=== PATIENT | female | born 1970 | race Caucasian/White ===

== ENCOUNTER 2019-06-15 09:58 | Day surgery (SDC) | payer OTHER ==
[~2019-06-15] VITALS: Ht 170.2 cm; Wt 167.8 kg
[~2019-06-15 09:58] MED LIST: AIMOVIG AU140 MG/1 M SUBQ; ALBUTEROL2.5 MG/3 M INH; BUPROPION XL150 MG PO; CLONAZEPAM 1 MG1 M1 PO; COZAAR 25 MG TA25 M1 PO; CYCLOBENZAPRINE10 MG PO; DULOXETINE HCL60 MG PO; FLONASE 0.05%50 MCG NASAL; GRALISE600 MG PO; HYDROXYZINE HCL10 M2 PO; KETOROLAC IM; LEFLUNOMIDE20 MG PO; MELOXICAM15 MG PO; NEURONTIN300 MG PO; NORTRIPTYLINE H50 M3 PO; PROAIR HFA8.5 GM INH; RINVOQ ER15 MG PO; TRELEGY ELLIPT1 EACH NASAL; VERAPAMIL E.R240 M1 PO; VITAMIN B2 PO; VITAMIN D325 MC3 PO; VITAMIN E400 UNI6 PO
[2019-06-15] MEDS ORDERED: ASPIRIN EC325 M1 PO (12:33)
[2019-06-15] MEDS ORDERED: NORCO 7.5-3251 EACH PO (12:35)
[2019-06-15 14:24] VITALS: BP 144/77
--- NOTE | 2019-06-29 15:42 | O ---
[facility] [place] [address] OPERATIVE REPORT Name: EILEEN HERMAN Room #: DEP [facility]#: [id number] Admission: 06/15/19 Attend Phys: Tr Damian MD Discharge: 06/15/19 Date of : 68 Report #: [id number] THIS REPORT FOR: cc: Margarita Gleason MD,Margarita Damian,Tr Hernandez MD ~ CC: Tr Gleason DATE OF SERVICE: 06/15/2019 PREOPERATIVE DIAGNOSIS: Right foot fifth metatarsal stress fracture. POSTOPERATIVE DIAGNOSIS: Right foot fifth metatarsal stress fracture. PROCEDURE: Right foot fifth metatarsal percutaneous screw fixation. SURGEON: Dr. Tr Damian. EXECUTIVE DIRECTOR OF MARKETING: Corazon Russell. ANESTHESIA: General. ESTIMATED BLOOD LOSS: Minimal. DRAINS: No drains. TOURNIQUET TIME: 15 minutes. DESCRIPTION OF PROCEDURE: The patient brought to the operating room where she was placed under general anesthesia. Once under adequate general anesthesia utilizing fluoroscopy for guidance, a guidewire for the 4.5 mm solid screw from [employer] was then placed down the shaft of the fifth metatarsal through the base of the fifth metatarsal extending distally. This was measured at 50 mm. Therefore, this was then drilled for and a 50 mm screw from the [employer] fifth metatarsal plate was then placed. Excellent fixation was achieved. The wound was then irrigated copiously. Fluoroscopy was used to verify satisfactory reduction and fixation. The wound was irrigated copiously and closed with roxanne for the skin. The wound was dressed with Xeroform, 4 x 4s, and sterile soft compressive dressing was placed. Tourniquet was let down at approximately 15 minutes. Toes were pink and warm with good capillary refill. There were no [facility] [address] [place] [address] OPERATIVE REPORT Name: EILEEN HERMAN Room #: DEP [facility]#: [id number] Admission: 06/15/19 Attend Phys: Tr Damian MD Discharge: 06/15/19 Date of : 68 Report #: [id number] complications from the procedure. The patient tolerated the procedure well and went to the recovery room without incident. <ELECTRONICALLY SIGNED> By: Tr Damian MD 06/29/19 1542 1244 1253 Tr Damian MD /nt
== END 2019-06-15 14:11 | disposition home or self-care (01) ==
LOC: TBA 09:58 → OR 09:58 → TBA 10:35 → OR 10:40
DX: M84.374A Stress fracture, right foot, initial encounter for fracture (principal); F32.9 Major depressive disorder, single episode, unspecified; F41.9 Anxiety disorder, unspecified; J45.909 Unspecified asthma, uncomplicated; F17.210 Nicotine dependence, cigarettes, uncomplicated; Z98.890 Other specified postprocedural states; Z79.899 Other long term (current) drug therapy; Z88.0 Allergy status to penicillin; Z88.2 Allergy status to sulfonamides; Z88.8 Allergy status to other drugs, medicaments and biological substances
CPT/HCPCS: 50010; 50101; 50386; 51412; 57091; 57181; 57457; 62110; 62900; 70005

== ENCOUNTER → 2019-09-13 | Day surgery (SDC) | payer OTHER ==
[~2019-09-13] VITALS: Ht 170.2 cm; Wt 163.3 kg
[~2019-09-13] MED LIST changes: +ASPIRIN EC325 M1 PO; +HYDROCODON-ACE1 EAC8 PO; +IMMUNE GLOBULIN SUBQ; +MAG-OXIDE200 MG PO; +NORCO 7.5-3251 EACH PO; +NOXIFOL-D32500 UNIT PO; +PLAQUENIL200 MG PO; +TRELEGY ELLIPT1 EACH INH; -TRELEGY ELLIPT1 EACH NASAL; +VITAMIN B-225 MG PO; +VITAMIN C1000 MG PO; +VITAMIN K240 MCG PO; +ZOFRAN4 MG PO; +ZOLPIDEM TARTRA10 MG PO
--- NOTE | ~2019-09-13 | O ---
[facility] [place] [address] OPERATIVE REPORT Name: EILEEN HERMAN Room #: REG [facility]#: [id number] Admission: 09/13/19 Attend Phys: Alma Cordoba, Discharge: Date of : 68 Report #: [id number] THIS REPORT FOR: cc: Margarita Gleason MD,Margarita Cordoba,Alma Kolb MD ~ CC: Margarita Cordoba DATE OF SERVICE: 09/13/2019 PREOPERATIVE DIAGNOSIS: Right carpal tunnel syndrome. POSTOPERATIVE DIAGNOSIS: Right carpal tunnel syndrome. PROCEDURE PERFORMED: Right endoscopic carpal tunnel release. SURGEON: Alma Cordoba MD ANESTHESIA: General mask anesthesia. ESTIMATED BLOOD LOSS: 1 mL. TOURNIQUET TIME: 12 minutes. COMPLICATIONS: None. CONDITION: Stable. DISPOSITION: Recovery room. INDICATIONS: The patient is a 48-year-old female with the above-mentioned diagnosis. She elects for operative treatment. The risks, benefits, alternatives and complications were discussed including but not limited to infection, damage to vessels or nerves, incomplete relief or worsening of any symptoms. Informed consent was obtained. The correct extremity was identified and labeled by myself after verbal confirmation of the patient as well as visual confirmation and signed informed consent. DESCRIPTION OF PROCEDURE: The patient was brought back to the operating room and placed on the operating table in the supine position. She received preoperative antibiotics. Tourniquet was placed over padding on the patient's right upper extremity. The right upper extremity was sterilely prepped and draped in the usual fashion. Final timeout was taken to verify correct patient, operative procedure, operative site, all concurred. The arm was elevated, exsanguinated and tourniquet inflated. The entire procedure was done with the [address] [address] OPERATIVE REPORT Name: EILEEN HERMAN Room #: REG [facility]#: [id number] Admission: 09/13/19 Attend Phys: Alma Cordoba, Discharge: Date of : 68 Report #: [id number] aid of a 3.5 loupe magnification. Next, transverse incision was made at few millimeters proximal to the distal wrist crease in line with ulnar border of the palmaris longus tendon. Dissection was carried down through subcutaneous tissue with tenotomy scissors. The antebrachial fascia was identified and incised. It was then incised for a few millimeters proximal. Next, an oblique incision was made ____ hook of hamate in line with the ring finger. Fat was elevated off the fascia. The fascia was carefully incised. Next, a Cornucopia elevator was placed through the carpal tunnel from proximal to distal to elevate any synovial tissue off the undersurface of the transverse carpal ligament. Next, ____ was placed through the carpal tunnel to remove any synovial tissue off the undersurface of the transverse carpal ligament. Next, a blunt trocar and cannula was inserted with the wrist in maximal extension and digital pressure distally, so blunt trocar was removed. The camera was inserted and the nice transverse fibers of the undersurface of the transverse carpal ligament were easily identified. The blade was brought in distally and the transverse carpal ligament transected distally. Next, the camera was inserted distally and the transverse carpal ligament was transected proximally. Next, the camera and cannula were withdrawn and visualized the cut end of the transverse carpal ligament. Each wound was explored. There was approximately 1 cm of the transverse carpal ligament that remained distally. This was incised under direct visualization. The release was all away from the antebrachial fascia in the forearm all the way to the fat in the palm. The nerve looked to be in excellent condition. A Cornucopia elevator was placed through the carpal tunnel and no remnants of the transverse carpal ligament remained. The wounds were thoroughly irrigated. Skin was closed with 4-0 nylon suture. Wounds were infiltrated with approximately 5 mL of 0.25% Marcaine. She was placed in a bulky dressing. All fingers were pink with brisk capillary refill at the conclusion of case after deflation of tourniquet. All sponge and needle counts were correct. The patient was transferred to postoperative recovery room in stable condition. By: [id number] 1709 Alma Cordoba MD /nt
[2019-09-13 12:07] VITALS: BP 125/89
[2019-09-13 13:45] VITALS: BP 125/89
== END | disposition home or self-care (01) ==
LOC: OR 11:04
DX: G56.01 Carpal tunnel syndrome, right upper limb (principal); I10 Essential (primary) hypertension; E78.5 Hyperlipidemia, unspecified; J45.909 Unspecified asthma, uncomplicated; F32.9 Major depressive disorder, single episode, unspecified; F41.9 Anxiety disorder, unspecified; M06.9 Rheumatoid arthritis, unspecified; G43.909 Migraine, unspecified, not intractable, without status migrainosus; F17.210 Nicotine dependence, cigarettes, uncomplicated; Z98.890 Other specified postprocedural states; Z79.899 Other long term (current) drug therapy; Z98.84 Bariatric surgery status; Z88.0 Allergy status to penicillin; Z88.2 Allergy status to sulfonamides
CPT/HCPCS: 50010; 50101; 50386; 56526; 56969; 57006; 57091; 57178; 62110; 62900; 70005

== ENCOUNTER → 2019-10-08 | Outpatient (CLI) | payer OTHER ==
[~2019-10-08] MED LIST changes: +REPATHA SU140 MG/1 M SUBQ; +TYMLOS1.56 ML SUBQ
== END ==
LOC: LAB 12:43
PROVIDERS: ATTEND Orthopaedic Surgery Hand Surgery
DX: Z01.818 Encounter for other preprocedural examination (principal); Z11.59 Encounter for screening for other viral diseases

== ENCOUNTER 2019-10-18 11:35 | Day surgery (SDC) | payer OTHER ==
[~2019-10-18] VITALS: Ht 170.2 cm; Wt 158.3 kg
--- NOTE | ~2019-10-18 | O ---
[facility] [place] [address] OPERATIVE REPORT Name: EILEEN HERMAN Room #: DEP [facility]#: [id number] Admission: 10/18/19 Attend Phys: Alma Cordoba, Discharge: 10/18/19 Date of : 68 Report #: [id number] THIS REPORT FOR: cc: Margarita Gleason MD,Margarita Cordoba,Alma Kolb MD ~ CC: Margarita Cordoba DATE OF SERVICE: 10/18/2019 PREOPERATIVE DIAGNOSIS: Left carpal tunnel syndrome. POSTOPERATIVE DIAGNOSIS: Left carpal tunnel syndrome. PROCEDURE PERFORMED: Left endoscopic carpal tunnel release. SURGEON: Alma Cordoba MD ANESTHESIA: General mask anesthesia. ESTIMATED BLOOD LOSS: Minimal. TOURNIQUET TIME: 12 minutes. COMPLICATIONS: None. CONDITION: Stable. DISPOSITION: To the recovery room. INDICATIONS: The patient is a 49-year-old female with the above-mentioned diagnosis. She elects for operative treatment. The risks, benefits, alternatives and complications were discussed including but not limited to infection, damage to vessels or nerves, incomplete relief of her symptoms or worsening of any symptoms. Informed consent was obtained. The correct extremity was identified and labeled by myself after verbal confirmation of the patient as well as visual confirmation and signed informed consent. DESCRIPTION OF PROCEDURE: The patient was brought back to the operating room and placed on the operating table in supine position. She received preoperative antibiotics. Tourniquet was placed over padding on the patient's left upper extremity. Left upper extremity was sterilely prepped and draped in the usual fashion. Final timeout was taken to verify correct patient, operative procedure, operative site, all concurred. The entire procedure was done with the aid of 3.5 times loupe magnification. The left upper extremity was [address] [address] OPERATIVE REPORT Name: EILEEN HERMAN Room #: DEP [facility]#: [id number] Admission: 10/18/19 Attend Phys: Alma Cordoba, Discharge: 10/18/19 Date of : 68 Report #: [id number] sterilely prepped and draped in the usual fashion. Final timeout was taken to verify correct patient, operative procedure, operative site, all concurred. The arm was elevated, exsanguinated and tourniquet inflated. Next transverse incision was made at few millimeters proximal to the distal wrist crease in line with ulnar border of the palmaris longus tendon. Dissection was carried down through subcutaneous tissue with tenotomy scissors. The antebrachial fascia was identified and incised. It was then incised for a few millimeters proximal. Next, an oblique incision was made distal to the hook of hamate in line with the ring finger. The fat was elevated off the fascia. The fascia was carefully incised. Next, the Boaz elevator was placed through the carpal tunnel from proximal to distal to elevate any synovial tissue off the undersurface of the transverse carpal ligament. Next, blunt trocar and cannula was inserted with the wrist in maximal extension and digital pressure distally. Blunt trocar was removed. The camera was inserted and the nice transverse fibers of the undersurface of the transverse carpal ligament was identified. The blade was brought in distally and the transverse carpal ligament transected distally. Next, the camera was inserted distally and the transverse carpal ligament was transected proximally. Next, camera and cannula were withdrawn and visualized the cut ends of the transverse carpal ligament. Each wound was explored. They released all the away from the antebrachial fascia in the forearm all the way through the fat in the palm. The nerve looked to be in excellent condition. It was placed through the carpal tunnel and no remnants of the transverse carpal ligament remained. The wounds were thoroughly irrigated. Skin was closed with 4-0 nylon suture. Wounds were infiltrated with approximately 5 mL of 0.25% Marcaine. She was placed in a bulky dressing. All fingers were pink with brisk capillary refill at the conclusion of case after deflation of tourniquet. All sponge and needle counts were correct. The patient was transferred to postoperative recovery room in stable condition. By: 1650 1731 Alma Cordoba MD /mor
[2019-10-18 13:11] VITALS: BP 137/73
[2019-10-18 15:08] VITALS: BP 137/73
--- NOTE | 2019-10-18 16:48 | EKG ---
[facility] [place] [address] ELECTROCARDIOGRAM REPORT Name: EILEEN HERMAN Room #: DEP [facility] M..#: [id number] Admission: 10/18/19 Attend Phys: Alma Cordoba, Discharge: 10/18/19 Date of : 68 Report #: [id number] THIS REPORT FOR: cc: Margarita Gleason MD, Melanie MD Lundgren,Alex Murillo MD [facility] ~ THIS REPORT FOR: //name// [facility] Test Date: 2019-10-18 Test Time: 12:22:16 Pat Name: EILEEN HERMAN Department: Room: 150 9 Gender: F Tube Operator: Jalen DU : 1970 Requested By: Glen Lazaro Order Number: [id number] MD: Alex Canela Measurements Intervals [place] Rate: 78 P: 34 MD: 177 QRS: -8 QRSD: 80 T: 30 QT: 397 QTc: 453 Interpretive Statements Sinus rhythm Poor R wave progression No previous ECG available for comparison Electronically Signed On 10-18-2019 16:47:24 CDT by Alex Canela [email or web address] <ELECTRONICALLY SIGNED> By: Alex Canela MD, [facility] 10/18/19 1647 1222 1222 Alex Canela MD, [facility] /EPI
== END 2019-10-18 16:10 | disposition home or self-care (01) ==
LOC: OR 11:35 → TBA 11:37 → OR 16:10
PROVIDERS: ATTEND Orthopaedic Surgery Hand Surgery
DX: G56.02 Carpal tunnel syndrome, left upper limb (principal); I10 Essential (primary) hypertension; F32.9 Major depressive disorder, single episode, unspecified; F41.9 Anxiety disorder, unspecified; E78.5 Hyperlipidemia, unspecified; J45.909 Unspecified asthma, uncomplicated; F17.210 Nicotine dependence, cigarettes, uncomplicated; G43.909 Migraine, unspecified, not intractable, without status migrainosus; M06.9 Rheumatoid arthritis, unspecified; Z11.59 Encounter for screening for other viral diseases; Z98.890 Other specified postprocedural states; Z79.899 Other long term (current) drug therapy; Z88.0 Allergy status to penicillin; Z88.8 Allergy status to other drugs, medicaments and biological substances
CPT/HCPCS: 50010; 50101; 50386; 56526; 56969; 57091; 57179; 62110; 62900; 70005

== ENCOUNTER → 2020-10-03 | Outpatient (CLI) | payer OTHER | LOC: SJCVCIMAG 09:51 | PROVIDERS: ATTEND Internal Medicine | DX: I07.1 Rheumatic tricuspid insufficiency (principal); I11.9 Hypertensive heart disease without heart failure; Z79.899 Other long term (current) drug therapy ==